=== PATIENT | female | born 1970 | race Two or more races ===

== ENCOUNTER 2017-07-22 21:09 | Emergency (ER) | payer OTHER ==
[~2017-07-22] VITALS: Ht 152.4 cm; Wt 45.4 kg
[2017-07-22] MEDS ORDERED: Tetanus/Diptheria/Pertussis Vaccine 0.5ml Syr IM ONE (21:30)
[2017-07-22] MEDS ORDERED: Lidocaine 1% 10mg/ml/Epi 0.005mg/ml 30ml vial INJ ONE (21:30)
--- NOTE | 2017-07-22 21:39 | Emergency Room Report ---
History of Present Illness General Chief Complaint: Lower Extremity Injury Source: Patient Present Illness HPI 47-year-old female, history of deafness, p/w laceration sustained to right knee. sustained when she was walking, tripped, fell onto right knee. Now complaining of pain to the area, worse with any movement, sustained a deep laceration. No other complaints. Tdap is not up-to-date took tylenol prior to arrival Allergies: Coded Allergies: No Known Allergies (Unverified , 07/22/17) Patient History Past Medical History: see triage record Past Surgical History: none Pertinent Family History: none Last Menstrual Period: unknown Now: No Reviewed Nursing Documentation: PMH: Agreed, PSxH: Agreed Nursing Documentation-PMH Past Medical History: No Stated History Review of Systems All Other Systems: negative except mentioned in HPI Physical Exam Vital Signs Date Time Temp Pulse Resp B/P (MAP) Pulse Ox O2 Delivery O2 Flow Rate FiO2 07/22/17 21:23 97.8 65 18 152/84 98 Room Air 97.9 Sp02 EP Interpretation: reviewed, normal General Appearance: alert, non-toxic, mild distress, other - +deafness but alert and communicating via sign language Head: normocephalic, atraumatic Eyes: bilateral eye normal inspection, bilateral eye PERRL, bilateral eye EOMI ENT: normal ENT inspection, normal pharynx, normal voice, moist mucus membranes Neck: normal inspection, full range of motion, supple Respiratory: normal inspection, lungs clear, normal breath sounds, no respiratory distress, no retraction, no wheezing, speaking full sentences, chest symmetrical Cardiovascular #1: normal inspection, regular rate, rhythm, normal capillary refill Cardiovascular #2: 2+ radial (R), 2+ radial (L) Gastrointestinal: normal inspection, non tender, soft, non-distended, no guarding Musculoskeletal: back normal, other - Right knee with 2 lacerations, one measuring 1 cm and the other measuring 4 cm, horizontal across knee. Limited range of motion secondary to pain. Neurologic: alert, responsive, motor strength/tone normal, sensory intact, normal gait Skin: normal inspection, normal color, no rash, warm/dry, well hydrated, normal turgor Procedures Laceration/Wound Repair Laceration/Wound Repair : Consent: Verbal Wound Location: lower extremity Wound's Depth, Shape: into muscle Wound Length (cm): 5 Wound Explored: clean Irrigated w/ Saline (ccs): 1000 Betadine Prep?: Yes Anesthesia: Lidocaine w/ Epi Volume Anesthetic (ccs): 10 Wound Debrided: minimal Wound Repaired With: sutures Suture Size/Type: 3:0, nylon Number of Sutures: 12 Layer Closure?: Yes Patient Tolerated: Well Complications: None Medical Decision Making Diagnostic Impression: Primary Impression: Laceration of knee ER Course 47-year-old female p/w laceration and right knee pain DDX: Laceration, no signs of infection Right knee pain, contusion versus fracture ER course: Laceration repaired, bacitracin with sterile dressing applied. Tdap given. Disposition: Patient will be discharged home. Strict return precautions discussed with patient such as fever, chills, increasing bleeding to site, purulent drainage, rapid swelling or redness to area. Patient verbalizes understanding. Patient informed of inevitable scar that will result from laceration despite repair. Pt instructed to avoid sun exposure to decrease the appearance of scar. Patient instructed to return to ED or their primary care doctor in 14 days for removal of sutures. Patient agrees with plan. Please note that this Emergency Department Report was dictated using [employer] technology software, occasionally this can lead to erroneous entry secondary to interpretation by the dictation equipment Xray: Right knee 3 view Indication: Pain EP Interpretation: Yes Interpretation: No dislocation, no soft tissue swelling, no fractures Impression: No acute disease Electronically signed by William Ramos MD Last Vital Signs Date Time Temp Pulse Resp B/P (MAP) Pulse Ox O2 Delivery O2 Flow Rate FiO2 07/22/17 21:23 97.8 65 18 152/84 98 Room Air 97.9 Disposition: HOME, SELF-CARE Condition: Improved Scripts Cephalexin* (KEFLEX*) 500 Mg Capsule 500 MG ORAL Q6H, #28 CAP 0 Refills Prov: William Ramos M.D. 07/22/17 Patient Instructions: Knee Pain, [id number], Laceration Care, Adult, Easy-to- Read William Ramos M.D. Jul 22, 2017 21:39
[2017-07-22] MEDS ORDERED: KEFLEX500 MG ORAL (23:08)
[2017-07-22] MEDS ORDERED: Bacitracin Oint UD TOPIC ONE (23:15)
[2017-07-22 23:35] VITALS: BP 152/84
--- NOTE | 2017-07-23 09:52 | Diagnostic Imaging Report ---
Indications: Pain Technique: Three views of the right knee Comparison: None Findings: No acute fractures. No dislocations. Joint spaces are preserved. No radiopaque foreign body. Normal mineralization. Impression: No acute process
== END 2017-07-22 23:35 | disposition home or self-care (01) ==
LOC: EMR 21:41
DX: S81.011A Laceration without foreign body, right knee, initial encounter (principal); W01.0XXA Fall on same level from slipping, tripping and stumbling without subsequent striking against object, initial encounter; Y93.01 Activity, walking, marching and hiking; Y92.9 Unspecified place or not applicable; Z23 Encounter for immunization
CPT/HCPCS: 12002; 73562; 90471; 90715; 99284; Z7502

== ENCOUNTER 2017-08-12 20:42 | Emergency (ER) | payer OTHER ==
[~2017-08-12] VITALS: Ht 152.4 cm; Wt 45.4 kg
[~2017-08-12 20:42] MED LIST: KEFLEX500 MG ORAL
[2017-08-12 20:50] VITALS: BP 132/70
--- NOTE | 2017-08-12 22:56 | Emergency Room Report ---
History of Present Illness General Chief Complaint: Wound Recheck/Suture Removal Source: Patient Present Illness HPI Patient is a 47 year female presented for suture removal. Patient had wound to her left knee which was repaired 2 weeks ago. Patient had recently been treated with antibiotics which had improved. The patient denied any discharge. Allergies: Coded Allergies: No Known Allergies (Unverified , 07/22/17) Patient History Now: No Reviewed Nursing Documentation: PMH: Agreed, PSxH: Agreed Nursing Documentation-PMH Past Medical History: No Stated History Review of Systems All Other Systems: negative except mentioned in HPI Physical Exam Vital Signs Date Time Temp Pulse Resp B/P (MAP) Pulse Ox O2 Delivery O2 Flow Rate FiO2 08/12/17 20:45 97.9 68 14 132/70 99 Room Air 97.9 General Appearance: well appearing, no apparent distress, GCS 15 Head: normocephalic, atraumatic Neck: full range of motion, supple Respiratory: no respiratory distress, speaking full sentences Musculoskeletal: no calf tenderness Neurologic: normal gait Psychiatric: mood/affect normal Skin: no rash, other - healed laceration Medical Decision Making Diagnostic Impression: Primary Impression: Visit for suture removal ER Course Patient presented for wound check. Differential diagnosis included healed wound , cellulitis, wound dehiscence among others. The sutures were removed by me. The patient is advised to follow up with primary care doctor in 1-2 days. Patient is advised to return if any worsening condition or if any changes in status that are concerning. Last Vital Signs Date Time Temp Pulse Resp B/P (MAP) Pulse Ox O2 Delivery O2 Flow Rate FiO2 08/12/17 20:45 97.9 68 14 132/70 99 Room Air 97.9 Status: improved Disposition: HOME, SELF-CARE Condition: Stable Patient Instructions: Suture Removal, Care After Elbert Vivar Aug 12, 2017 22:56
[2017-08-12 23:10] VITALS: BP 132/70
== END 2017-08-12 23:10 | disposition home or self-care (01) ==
LOC: EMR 21:14
DX: Z48.02 Encounter for removal of sutures (principal)
CPT/HCPCS: 99281